=== PATIENT | female | born 1960 | race Caucasian/White ===

== ENCOUNTER 2022-06-26 16:50 | Outpatient (REF) | payer OTHER, SELFPAY ==
[2022-06-27 14:19] LABS: H Pylori Breath Test Negative (Negative)
== END 2022-06-26 16:51 | disposition home or self-care (01) ==
LOC: HO.LNP 16:50
PROVIDERS: Visit Provider Surgery
DX: E03.9 Hypothyroidism, unspecified (principal); E66.01 Morbid (severe) obesity due to excess calories; G47.30 Sleep apnea, unspecified
CPT/HCPCS: 83013

== ENCOUNTER 2022-07-06 09:10 | Outpatient (REF) | payer OTHER, SELFPAY ==
[2022-07-06 09:36] LABS: MANUAL DIFF FLAG NO
[2022-07-06 10:37] LABS: Basophils Absolute Auto 0.1 X10*3/uL (0.0-0.2); Basophils Percent Auto 0.6 % (0-2); Eosinophils Absolute Auto 0.3 X10*3/uL (0.0-0.4); Eosinophils Percent Auto 3.7 % (0-4); Hematocrit 47.8 % (37.0-47.0); Hemoglobin 15.7 g/dl (12.0-16.0); Imm Gran Abs Auto 0.03 X10*3/uL (0.00-0.03); Imm Gran Pct Auto 0.4 % (0.0-0.4); Lymphocytes Absolute Auto 3.7 X10*3/uL (1.2-4.9); Lymphocytes Percent Auto 45.3 % (20-40); Mean Corpuscular HGB Conc 32.8 g/dl (31.0-35.0); Mean Corpuscular Hemoglobin 30.6 pg (27.0-33.0); Mean Corpuscular Volume 93.2 fL (80.0-98.0); Mean Platelet Volume 10.8 fL (9.4-12.3); Monocytes Absolute Auto 0.4 X10*3/uL (0.1-1.2); Monocytes Percent Auto 5.1 % (2-11); Neutrophils Absolute Auto 3.7 x10*3/uL (2.0-8.3); Neutrophils Percent Auto 44.9 % (45-73); Platelet Count 295 X10*3/uL (160-400); Red Blood Count 5.13 X10*6/uL (4.20-5.50); White Blood Count 8.2 X10*3/uL (4.8-10.8)
[2022-07-06 10:47] LABS: Estimated Average Glucose 100 mg/dL; Hemoglobin A1c % 5.1 %
[2022-07-06 11:11] LABS: Alanine Aminotransferase 18 U/L (0-31); Albumin Level 4.2 g/dL (3.5-5.0); Alkaline Phosphatase 81 U/L (39-117); Anion Gap 18 (12-20); Aspartate Amino Transferase 22 U/L (5-31); Bilirubin Total 0.7 mg/dL (0.0-1.0); Blood Urea Nitrogen 13 mg/dL (9-16); C Reactive Protein 1.49 mg/dL (< or = 0.50); Calcium 9.8 mg/dL (8.4-10.2); Carbon Dioxide 24 mmol/L (22-29); Chloride 104 mmol/L (96-108); Cholesterol 189 mg/dL; Estimated Glomerular Filt Rate > 60; Glucose Random 83 mg/dL (60-115); HDL Cholesterol 54 mg/dL; Iron 80 mcg/dL (30-160); LDL Cholesterol Calculated 118 mg/dl; Percent Iron Saturation 25 % (15-50); Potassium 4.7 mmol/L (3.3-5.1); Sodium 141 mmol/L (135-145); Total Iron Binding Capacity 321 mcg/dL (228-428); Total Protein 7.4 g/dL (6.5-8.0); Triglycerides 86 mg/dL; Unsaturated Iron Binding 241 ug/dL
[2022-07-06 11:37] LABS: Folate 10.8 ng/mL (> or = 4.0); Vitamin B12 187 pg/mL (200-900)
[2022-07-06 11:38] LABS: Ferritin 248 ng/mL (10-250); TSH reflex Free T4 1.19 uIU/mL (0.32-4.0); Vitamin D 25-OH Total 18.4 ng/mL (>30)
[2022-07-06 11:43] LABS: Insulin 10 uU/mL (2-29)
[2022-07-09 11:41] LABS: Calcium (PTHI) 9.7 mg/dL (8.6-10.4); PTHI 77 pg/mL (16-77)
[2022-07-10 15:37] LABS: Zinc 78 mcg/dL (60-130)
[2022-07-11 16:42] LABS: Vitamin B1 6 nmol/L (8-30)
[2022-07-11 17:02] LABS: Vitamin A 41 mcg/dL (38-98)
== END 2022-07-06 09:11 | disposition home or self-care (01) ==
LOC: HO.LAB 09:10
PROVIDERS: Visit Provider Surgery
DX: E03.9 Hypothyroidism, unspecified (principal); E66.01 Morbid (severe) obesity due to excess calories; G47.30 Sleep apnea, unspecified
CPT/HCPCS: 36415; 80053; 80061; 82306; 82607; 82728; 82746; 83036; 83525; 83540; 83970; 84425; 84443; 84590; 84630; 85025; 86140

== ENCOUNTER → 2022-07-10 10:19 | Outpatient (REF) | payer OTHER, SELFPAY ==
--- NOTE | ~2022-07-10 | XR_ITS ---
EXAMINATION: XR CHEST CLINICAL INFORMATION: Obesity COMPARISON: None TECHNIQUE: 2 views of the chest were obtained. FINDINGS: The cardiac and mediastinal contours are normal. There is slight elevation of the right hemidiaphragm. There is a 4 x 8 mm nodular density seen retrosternally on the lateral view behind the upper sternum. No corresponding abnormality is appreciated on the PA view. It is uncertain whether this is related to vascular calcification in the ascending thoracic aorta or could represent a nodule. The lungs are otherwise clear. There is no pleural effusion or pneumothorax. Degenerative changes of the spine. XR/XR chest 2V IMPRESSION: 4 x 8 mm retrosternal nodular density seen on the lateral view only, question pulmonary nodule versus aortic calcification.
--- NOTE | 2022-07-10 10:23 | ECG_ITS ---
Test Reason : obesity Blood Pressure : / mmHG Vent. Rate : 082 BPM Atrial Rate : 082 BPM P-R Int : 148 ms QRS Dur : 082 ms QT Int : 372 ms P-R-T Axes : 045 014 023 degrees QTc Int : 434 ms Normal sinus rhythm Normal ECG No previous ECGs available Referred By: Tino Cuevas Electronically Signed By:KATHRIN STEPHENSON MD
== END ==
LOC: HO.CARD 10:19
PROVIDERS: Visit Provider Surgery
DX: E66.01 Morbid (severe) obesity due to excess calories (principal); E03.9 Hypothyroidism, unspecified; G47.30 Sleep apnea, unspecified
CPT/HCPCS: 71046; 93005

== ENCOUNTER → 2022-07-11 13:00 | Outpatient (BNVA) | payer OTHER, SELFPAY | PROVIDERS: Visit Provider Counselor Mental Health | DX: F43.20 Adjustment disorder, unspecified (principal); E66.01 Morbid (severe) obesity due to excess calories; M19.90 Unspecified osteoarthritis, unspecified site; E03.9 Hypothyroidism, unspecified | CPT/HCPCS: 90791 ==

== ENCOUNTER → 2022-07-12 08:44 | Outpatient (BNVA) | payer OTHER, SELFPAY | PROVIDERS: Visit Provider Dietitian, Registered | DX: E66.01 Morbid (severe) obesity due to excess calories (principal) | CPT/HCPCS: 97802 ==

== ENCOUNTER 2022-07-29 09:39 | Outpatient (REF) | payer OTHER, SELFPAY ==
--- NOTE | ~2022-07-29 | US_ITS ---
EXAMINATION: US COMPLETE ABDOMEN WITH LIVER ELASTOGRAPHY CLINICAL INFORMATION: Morbid obesity. COMPARISON: None. TECHNIQUE: Real-time imaging of the abdominal viscera. Noninvasive ultrasound liver fibrosis assessment is performed using Bull ElastPQ point quantification shear wave elastography (2D-SWE) with a C5-2 MHz transducer. Multiple elastography samples are obtained. FINDINGS: PANCREAS: Normal. The visualized pancreatic head and body are normal in appearance. The remainder of the pancreas is obscured from visualization by the overlying bowel gas. ABDOMINAL AORTA: The proximal, middle, and distal aortic segments are normal in caliber. INFERIOR VENA CAVA: Visualized portions are normal. LIVER: The liver demonstrates normal size, contour and increased echogenicity. No focal lesion or intrahepatic biliary duct dilatation. The right lobe measures 13.7 cm in length. The left lobe measures 9.3 cm in length. Portal flow is hepatopedal. Shear wave liver elastography median stiffness is 1.79 m/s (reference: normal median stiffness is 1.3 m/s or less). IQR/median stiffness to assess sampling precision is 0.09 (reference: good quality data set is IQR/median stiffness of 0.15 or less). GALLBLADDER: Normal. The gallbladder is physiologically distended without evidence of stones, sludge, polyps, wall thickening or pericholecystic fluid. COMMON BILE DUCT: Normal in caliber measuring 0.4 cm in diameter. RIGHT KIDNEY: There is an exophytic cyst lower pole measuring 5.6 x 2.8 x 5.5 cm No hydronephrosis. No renal calculi or focal parenchymal lesions. The kidney measures 9.5 cm in maximum dimension. LEFT KIDNEY: Normal. No hydronephrosis. No renal calculi or focal parenchymal lesions. The kidney measures 12.4 cm in maximum dimension. SPLEEN: Normal. The spleen measures 11.1 cm in maximum dimension. FREE FLUID: None. US/US abdomen comp w elastography IMPRESSION: 1. Mild hepatic steatosis without focal lesion. Small exophytic cyst lower pole right kidney. 2. Liver elastography: Median liver stiffness measures 1.79 m/s corresponding to cACLD (suggestive) REFERENCE: Society of Radiologists in Ultrasound Liver Stiffness Thresholds (2019): LIVER STIFFNESS THRESHOLDS: *Liver Stiffness equal or less than 1.3 m/s: High probability of being normal. *Liver Stiffness less than 1.7 m/s: In the absence of other known clinical signs, rules out compensated advanced chronic liver disease. *Liver Stiffness 1.7-2.1 m/s: Suggestive of compensated advanced chronic liver disease but need further test for confirmation. *Liver Stiffness over 2.1 m/s: Rules in compensated advanced chronic liver disease. *Liver Stiffness over 2.4 m/s: Suggestive of clinically significant portal hypertension. QUALITY OF DATA SET: *IQR/Median value equal or less than 0.15 implies a quality data set. *IQR/Median value over 0.15 implies a poor quality data set. SIGNIFICANT CHANGE FROM PRIOR EXAM: Significant change if liver stiffness measurement is 10% or greater from prior exam. OTHER CONSIDERATIONS: The stage of liver fibrosis may be overestimated in the setting of acute hepatitis, liver inflammation, elevated liver function tests, hepatic vascular congestion, obstructive cholestasis, non-fasting state, and infiltrative diseases such as amyloidosis and lymphoma. In some patients with NAFLD, the liver stiffness thresholds for compensated advanced chronic liver disease may be lower. In causes other than viral hepatitis and NAFLD, liver stiffness thresholds are not well established.
== END 2022-07-29 09:40 | disposition home or self-care (01) ==
LOC: HO.US 09:39
PROVIDERS: Visit Provider Surgery
DX: E66.01 Morbid (severe) obesity due to excess calories (principal); E03.9 Hypothyroidism, unspecified; G47.30 Sleep apnea, unspecified
CPT/HCPCS: 76705; 76981

== ENCOUNTER 2022-07-31 08:22 | Outpatient (REF) | payer OTHER, SELFPAY ==
--- NOTE | ~2022-07-31 | CT_ITS ---
EXAMINATION: CT CHEST WITHOUT CONTRAST CLINICAL INFORMATION: Pulmonary nodule COMPARISON: Previous chest x-ray 07/10/2022 TECHNIQUE: Multidetector volumetric CT imaging of the chest was done. Axial MIP volume rendering provided. Sagittal and coronal reformatted images were obtained. This CT examination was performed using dose optimization techniques as appropriate, variously including the following: *Automated exposure control *Adjustment of mA and/or kV according to patient size (this includes techniques or standardized protocols for targeted exams where dose is matched to indication/reason for exam; i.e. extremities or head) *Use of iterative reconstruction technique DLP: 337 mGy-cm FINDINGS: LUNGS: There is a peripheral or subpleural anterior segment right upper lobe nodule versus area of scarring or atelectasis axial image 154 series 5 measuring maximum 4 mm. There is adjacent pleural thickening are prominent extrapleural fat. There is linear scarring or subsegmental atelectasis in the anterior segment of the right upper lobe right middle lobe, lingula and right lower lobe. The lungs are otherwise clear. The lungs are otherwise clear. MEDIASTINUM: Scattered aortic calcifications. This probably accounts for abnormality seen on chest x-ray. Thoracic aorta is upper normal in size. Normal heart size. Mild coronary artery calcification. No pericardial effusion. No enlarged hilar or mediastinal lymph nodes. Normal thyroid gland. CORONARY ARTERY CALCIFICATION: Mild PLEURA: There is no pleural effusion. AXILLA: No lymphadenopathy. UPPER ABDOMEN: Liver slightly low in attenuation suggestive of fatty infiltration. Liver also appears enlarged. The gallbladder is been removed. Diverticulosis of the colon. OSSEOUS STRUCTURES: Degenerative changes of the spine. Recent right anterior seventh and eighth rib fractures. CT/CT chest wo IV con IMPRESSION: Small 4 mm peripheral or subpleural right upper lobe nodule. Areas of linear scarring or subsegmental atelectasis, right greater than left. Atherosclerotic disease. According to the UPDATED 2017 Fleischner Society recommendations, the advised follow-up imaging for less than 6 mm solid nodule: Low risk, no chest CT follow-up and high risk, optional chest CT follow-up in one year. Fleischner guidelines were followed.
== END 2022-07-31 08:23 | disposition home or self-care (01) ==
LOC: HO.CT 08:22
PROVIDERS: Visit Provider Surgery
DX: R91.1 Solitary pulmonary nodule (principal)
CPT/HCPCS: 71250

== ENCOUNTER 2022-08-23 10:53 | Outpatient (REF) | payer OTHER, SELFPAY ==
--- NOTE | ~2022-08-23 | FL_ITS ---
EXAMINATION: XR FLUOROSCOPY UPPER GI WITH AIR CLINICAL INFORMATION: Morbid/severe obesity due to excess calories COMPARISON: None TECHNIQUE: Routine upper GI air-contrast study was performed in upright and lying position. FINDINGS: Following oral administration of thick barium and effervescent granules there is normal propagation bolus from the oral cavity through the pharynx, esophagus into stomach without any evidence of obstruction, narrowing or stricture. There is no extrinsic compression. On placing patient supine and prone lying the course, caliber and peristalsis of the stomach and the duodenal bulb is normal. The mucosal pattern of this esophagus, stomach and the duodenum is normal. No gastroesophageal reflux or hiatal hernia seen. FLUOROSCOPY TIME: 1.4 minutes DOSE AREA PRODUCT: 36.176 uGy-m2 (microgray-meter squared) FL/FL upper GI w air IMPRESSION: Unremarkable upper GI air-contrast study
== END 2022-08-23 10:54 | disposition home or self-care (01) ==
LOC: HO.XRAY 10:53
PROVIDERS: Visit Provider Surgery
DX: E66.01 Morbid (severe) obesity due to excess calories (principal); E03.9 Hypothyroidism, unspecified; G47.30 Sleep apnea, unspecified
CPT/HCPCS: 74246

== ENCOUNTER → 2022-09-06 08:05 | Outpatient (BNVA) | payer OTHER, SELFPAY | PROVIDERS: Visit Provider Surgery | DX: Z01.818 Encounter for other preprocedural examination (principal) ==

== ENCOUNTER → 2022-09-13 09:01 | Outpatient (BNVA) | payer OTHER, SELFPAY | PROVIDERS: PCP Nurse Practitioner Family; Visit Provider Surgery | DX: R91.1 Solitary pulmonary nodule (principal) | CPT/HCPCS: 99202 ==

== ENCOUNTER 2022-09-17 08:20 | Inpatient (IN) | payer OTHER, SELFPAY ==
[2022-09-12 14:59] VITALS: BMI 38.4
[2022-09-13 09:51] LABS: MANUAL DIFF FLAG NO
[2022-09-13 10:22] LABS: Basophils Absolute Auto 0.1 X10*3/uL (0.0-0.2); Basophils Percent Auto 0.6 % (0-2); Eosinophils Absolute Auto 0.4 X10*3/uL (0.0-0.4); Eosinophils Percent Auto 4.3 % (0-4); Hematocrit 47.5 % (37.0-47.0); Hemoglobin 15.8 g/dl (12.0-16.0); INTERNATIONAL NORM RATIO 1.1 (0.9-1.1); Imm Gran Abs Auto 0.02 X10*3/uL (0.00-0.03); Imm Gran Pct Auto 0.2 % (0.0-0.4); Lymphocytes Absolute Auto 3.7 X10*3/uL (1.2-4.9); Lymphocytes Percent Auto 42.8 % (20-40); Mean Corpuscular HGB Conc 33.3 g/dl (31.0-35.0); Mean Corpuscular Hemoglobin 30.5 pg (27.0-33.0); Mean Corpuscular Volume 91.7 fL (80.0-98.0); Mean Platelet Volume 10.5 fL (9.4-12.3); Monocytes Absolute Auto 0.6 X10*3/uL (0.1-1.2); Monocytes Percent Auto 7.3 % (2-11); Neutrophils Absolute Auto 3.8 x10*3/uL (2.0-8.3); Neutrophils Percent Auto 44.8 % (45-73); Platelet Count 283 X10*3/uL (160-400); Prothrombin Time 12.4 SEC (10.0-13.1); Red Blood Count 5.18 X10*6/uL (4.20-5.50); Red Cell Distribution Width 12.7 % (11.0-16.0); White Blood Count 8.6 X10*3/uL (4.8-10.8)
[2022-09-13 10:25] LABS: Partial Thromboplastin Time 32.7 SEC (26.0-36.4)
[2022-09-13 10:59] LABS: Estimated Average Glucose 94 mg/dL; Hemoglobin A1c % 4.9 %
[2022-09-13 11:25] LABS: Alanine Aminotransferase 21 U/L (0-31); Albumin Level 4.3 g/dL (3.5-5.0); Alkaline Phosphatase 83 U/L (39-117); Anion Gap 17 (12-20); Aspartate Amino Transferase 23 U/L (5-31); Bilirubin Total 1.1 mg/dL (0.0-1.0); Blood Urea Nitrogen 17 mg/dL (9-16); C Reactive Protein 1.95 mg/dL (< or = 0.50); Calcium 10.1 mg/dL (8.4-10.2); Carbon Dioxide 22 mmol/L (22-29); Chloride 107 mmol/L (96-108); Cholesterol 195 mg/dL; Creatinine Clr Calc Pharmacy 82.5; Estimated Glomerular Filt Rate > 60; Glucose Random 92 mg/dL (60-115); HDL Cholesterol 50 mg/dL; LDL Cholesterol Calculated 126 mg/dl; Potassium 4.6 mmol/L (3.3-5.1); Sodium 141 mmol/L (135-145); Total Protein 7.5 g/dL (6.5-8.0); Triglycerides 99 mg/dL
[2022-09-13 11:32] LABS: Insulin 9 uU/mL (2-29); TSH reflex Free T4 0.16 uIU/mL (0.32-4.0)
[2022-09-13 12:25] LABS: Free T4 (Free Thyroxine) 1.35 ng/dL (0.71-1.85)
--- NOTE | 2022-09-13 23:51 | MHC.SHP ---
Pre-Procedural Eval Section A Date of Service: 09/13/22 The patient is an INPATIENT: Yes The History & Physical has been completed within 30 days and I have reviewed it.: Yes Section B Chief Complaint: Morbid (severe) obesity due to excess calories Relevant Family History (Specify if Yes): No Relevant Social History: None Present Medications: None Medical History: No relevant PMH History of Previous Operations: No relevant previous surgery Allergies: Allergies Allergy/AdvReac Type Severity Reaction Status Date / Time OUTDOOR ALLERGIES Allergy Mild RUNNY NOSE Uncoded 09/13/22 09:05 Review of Systems Sugical H&P ROS: Negative: Constitution, Cardiovascular, Respiratory, Neurological, Psychiatric, Hem-Onc, Allergic/Immunologic, Gastrointestinal, Genitourinary, Musculoskeletal, Integumentary, Endocrine and Eyes/Ears/Nose/Throat Exam Surgical H&P Exam: Normal: HEENT, Normal: Heart, Normal: Lungs, Normal: Extremities, Normal: Abdomen, Normal: Skin and Normal: Neurological Plan Diagnosis/Plan: Unchanged I have reviewed the history and physical and performed a pertinent physical examination on my patient. No changes have occurred unless specified. Time Spent With Patient Time: Total time managing care of this patient today ____ minutes.
--- NOTE | 2022-09-16 10:34 | HO.ANESPROP2 ---
Documented by User: Carolyn Barahona NP 09/16/22 10:39 HPI - Anesthesia Eval Consult details Narrative: 62yo F for Gastrectomy Sleeve,possible diaphragmatic hernia,possible ventral hernia,possible open PMFSH Active Problems Active Problems: All Active Problems (Updated 09/12/22 @ 15:03 by Tavia Govea RN) Sleep apnea (Acute) Vitamin D deficiency (Acute) Vitamin B12 deficiency (Acute) Adjustment disorder, unspecified (Acute) Vitamin B1 deficiency (Acute) Pulmonary nodule (Acute) Personal history of nicotine dependence (Acute) Obesity (Acute) BMI 39.0-39.9,adult (Acute) Hypothyroidism (Acute) Morbid obesity (Acute) DJD (degenerative joint disease) (Acute) Past Medical History Medical History Arthritis DJD (degenerative joint disease) Hypothyroidism Morbid obesity ROEL (obstructive sleep apnea) Family History Family History Mother Diabetes Cervical cancer Father Hypertension Brother Hypertension Sister Arthritis Son No problems noted. Son No problems noted. Daughter No problems noted. Surgical History Surgical History Hx of section Hx of cholecystectomy Hx of hysterectomy Social History Social History Are you a primary animal care taker to a significant other at home: No Do you presently have visiting nurse or other home services: No Alcohol intake: current Alcohol intake frequency: does not drink Alcohol type: beer and wine Patient Tobacco Use Status: Former Tobacco user Quit Date: 2007 Tobacco use type: Cigarette Use of substances other than those prescribed or required for medical reasons: No Have you been hit, kicked, punched, or otherwise hurt by someone within the past year? If so, by whom?: No Are you DNR?: No Advance Directives: No (will bring dos) Advance Directives Information Provided: No Advance Directives on File: No Recently lost weight without trying: No Nutrition Risks: No Nutritional Risk Meds Allergies Allergy/AdvReac Type Severity Reaction Status Date / Time OUTDOOR ALLERGIES Allergy Mild RUNNY NOSE Uncoded 09/13/22 09:05 Home Medications Medication Instructions Recorded Confirmed Last Taken Type levothyroxine 150 mcg tablet 150 mcg PO DAILY 06/12/22 09/13/22 Unknown History cetirizine 10 mg capsule (Zyrtec) 10 mg PO DAILY PRN Pain 06/19/22 09/13/22 Unknown History naproxen sodium 220 mg capsule 220 mg PO BID PRN 06/19/22 09/13/22 Unknown History (Aleve) acetaminophen 325 mg capsule 650 mg PO Q6H PRN Pain 09/12/22 09/13/22 Unknown History Exam Exam Date and Time: September 16, 2022 1034 Height,Weight and Vital Signs: Height 5 ft 5 in Weight 104.78 kg Pertinent Lab Results Pertinent Lab Results: Laboratory Tests 09/13/22 09/13/22 09/13/22 09:45 09:49 09:49 WBC 8.6 RBC 5.18 Hgb 15.8 Hct 47.5 H MCV 91.7 MCH 30.5 MCHC 33.3 RDW 12.7 Plt Count 283 MPV 10.5 Immature Gran % (Auto) 0.2 Neut % (Auto) 44.8 L Lymph % (Auto) 42.8 H [place] % (Auto) 7.3 Eos % (Auto) 4.3 H Baso % (Auto) 0.6 Lymph # (Auto) 3.7 [place] # (Auto) 0.6 Eos # (Auto) 0.4 Baso # (Auto) 0.1 Abs Immat Gran (auto) 0.02 Absolute Neuts (auto) 3.8 Absolute Nucleated RBC 0.000 Nucleated RBC % (auto) 0.0 PT 12.4 INR 1.1 APTT 32.7 Sodium Potassium Chloride Carbon Dioxide Anion Gap BUN Creatinine Estim Creat Clear Calc Estimated GFR Random Glucose Estimat Average Glucose Hemoglobin A1c % Insulin Level Calcium Total Bilirubin AST ALT Alkaline Phosphatase C-Reactive Protein Total Protein Albumin Triglycerides Cholesterol LDL Cholesterol, Calc HDL Cholesterol TSH Free T4 Blood Type O Positive Antibody Screen NEGATIVE 09/13/22 09/13/22 09:49 09:49 WBC RBC Hgb Hct MCV MCH MCHC RDW Plt Count MPV Immature Gran % (Auto) Neut % (Auto) Lymph % (Auto) [place] % (Auto) Eos % (Auto) Baso % (Auto) Lymph # (Auto) [place] # (Auto) Eos # (Auto) Baso # (Auto) Abs Immat Gran (auto) Absolute Neuts (auto) Absolute Nucleated RBC Nucleated RBC % (auto) PT INR APTT Sodium 141 Potassium 4.6 Chloride 107 Carbon Dioxide 22 Anion Gap 17 BUN 17 H Creatinine 0.85 Estim Creat Clear Calc 82.5 Estimated GFR > 60 Random Glucose 92 Estimat Average Glucose 94 Hemoglobin A1c % 4.9 Insulin Level 9 Calcium 10.1 Total Bilirubin 1.1 H AST 23 ALT 21 Alkaline Phosphatase 83 C-Reactive Protein 1.95 H Total Protein 7.5 Albumin 4.3 Triglycerides 99 Cholesterol 195 LDL Cholesterol, Calc 126 HDL Cholesterol 50 TSH 0.16 L Free T4 1.35 Blood Type Antibody Screen Narrative Narrative: EKG 07/2022 Vent. Rate : 082 BPM ? ? Atrial Rate : 082 BPM ?? P-R Int : 148 ms? QRS Dur : 082 ms ? ? QT Int : 372 ms ? ? ? P-R-T Axes : 045 014 023 degrees ?? QTc Int : 434 ms ? Normal sinus rhythm Normal ECG No previous ECGs available ? Assessment and Plan Assessment Anesthesia Assessment: Chart Reviewed Documented by User: Johana Auguste MD 09/17/22 12:52 [facility] Active Problems Active Problems: All Active Problems (Updated 09/12/22 @ 15:03 by Tavia Govea RN) Sleep apnea (Acute) Vitamin D deficiency (Acute) Vitamin B12 deficiency (Acute) Adjustment disorder, unspecified (Acute) Vitamin B1 deficiency (Acute) Pulmonary nodule (Acute) Personal history of nicotine dependence (Acute) Obesity (Acute) BMI 38.4 BMI 39.0-39.9,adult (Acute) Hypothyroidism (Acute) Morbid obesity (Acute) DJD (degenerative joint disease) (Acute) Past Medical History Medical History Arthritis DJD (degenerative joint disease) Hypothyroidism Morbid obesity ROEL (obstructive sleep apnea) Family History Family History Mother Diabetes Cervical cancer Father Hypertension Brother Hypertension Sister Arthritis Son No problems noted. Son No problems noted. Daughter No problems noted. Family history of problems with anesthesia: No Surgical History Surgical History Hx of section Hx of cholecystectomy Hx of hysterectomy History of Problems with Anesthesia: No Social History Social History Are you a primary animal care taker to a significant other at home: No Do you presently have visiting nurse or other home services: No Alcohol intake: current Alcohol intake frequency: does not drink Alcohol type: beer and wine Patient Tobacco Use Status: Former Tobacco user Quit Date: 2007 Tobacco use type: Cigarette Use of substances other than those prescribed or required for medical reasons: No Have you been hit, kicked, punched, or otherwise hurt by someone within the past year? If so, by whom?: No Are you DNR?: No Advance Directives: No (will bring dos) Advance Directives Information Provided: No Advance Directives on File: No Recently lost weight without trying: No Nutrition Risks: No Nutritional Risk Meds Allergies Allergy/AdvReac Type Severity Reaction Status Date / Time OUTDOOR ALLERGIES Allergy Mild RUNNY NOSE Uncoded 09/13/22 09:05 Home Medications Medication Instructions Recorded Confirmed Last Taken Type levothyroxine 150 mcg tablet 150 mcg PO DAILY 06/12/22 09/13/22 Unknown History cetirizine 10 mg capsule (Zyrtec) 10 mg PO DAILY PRN Pain 06/19/22 09/13/22 Unknown History naproxen sodium 220 mg capsule 220 mg PO BID PRN 06/19/22 09/13/22 Unknown History (Aleve) acetaminophen 325 mg capsule 650 mg PO Q6H PRN Pain 09/12/22 09/13/22 Unknown History Exam Height,Weight and Vital Signs: Height 5 ft 5 in Weight 104.78 kg Vital Signs Temp Pulse Resp BP 09/17/22 09:00 97.8 F 72 15 126/72 Pertinent Lab Results Pertinent Lab Results: Laboratory Tests 09/13/22 09/13/22 09/13/22 09:45 09:49 09:49 WBC 8.6 RBC 5.18 Hgb 15.8 Hct 47.5 H MCV 91.7 MCH 30.5 MCHC 33.3 RDW 12.7 Plt Count 283 MPV 10.5 Immature Gran % (Auto) 0.2 Neut % (Auto) 44.8 L Lymph % (Auto) 42.8 H [place] % (Auto) 7.3 Eos % (Auto) 4.3 H Baso % (Auto) 0.6 Lymph # (Auto) 3.7 [place] # (Auto) 0.6 Eos # (Auto) 0.4 Baso # (Auto) 0.1 Abs Immat Gran (auto) 0.02 Absolute Neuts (auto) 3.8 Absolute Nucleated RBC 0.000 Nucleated RBC % (auto) 0.0 PT 12.4 INR 1.1 APTT 32.7 Sodium Potassium Chloride Carbon Dioxide Anion Gap BUN Creatinine Estim Creat Clear Calc Estimated GFR Random Glucose Estimat Average Glucose Hemoglobin A1c % Insulin Level Calcium Total Bilirubin AST ALT Alkaline Phosphatase C-Reactive Protein Total Protein Albumin Triglycerides Cholesterol LDL Cholesterol, Calc HDL Cholesterol TSH Free T4 Blood Type O Positive Antibody Screen NEGATIVE 09/13/22 09/13/22 09:49 09:49 WBC RBC Hgb Hct MCV MCH MCHC RDW Plt Count MPV Immature Gran % (Auto) Neut % (Auto) Lymph % (Auto) [place] % (Auto) Eos % (Auto) Baso % (Auto) Lymph # (Auto) [place] # (Auto) Eos # (Auto) Baso # (Auto) Abs Immat Gran (auto) Absolute Neuts (auto) Absolute Nucleated RBC Nucleated RBC % (auto) PT INR APTT Sodium 141 Potassium 4.6 Chloride 107 Carbon Dioxide 22 Anion Gap 17 BUN 17 H Creatinine 0.85 Estim Creat Clear Calc 82.5 Estimated GFR > 60 Random Glucose 92 Estimat Average Glucose 94 Hemoglobin A1c % 4.9 Insulin Level 9 Calcium 10.1 Total Bilirubin 1.1 H AST 23 ALT 21 Alkaline Phosphatase 83 C-Reactive Protein 1.95 H Total Protein 7.5 Albumin 4.3 Triglycerides 99 Cholesterol 195 LDL Cholesterol, Calc 126 HDL Cholesterol 50 TSH 0.16 L Free T4 1.35 Blood Type Antibody Screen Laboratory Results - last 24 hr 09/16/22 12:55 COVID-19 ([facility]) Negative COVID-19 Clin Com See Note Airway Mallampati Class: II TM Dist: >3cm Neck ROM: Full Loose/Missing/Broken Teeth: No (Denies broken, loose, missing teeth) Heart: RRR Lungs: CTAB Assessment and Plan Assessment Anesthesia Assessment: Anesthesia Plan Discussed Final Anesthetic Review Family History of Problems with Anesthesia: No History of Problems with Anesthesia: No NPO: Yes ASA Class: III Final Preanesthetic Review: No Changes in Pt Med Stat, Meds/Allgs Chart Reviewed, Consent Obtained/Reviewed and Anes Risks/Benef Reviewed Patient Risk: Intermediate Procedure Risk: Intermediate Assessment/Block/Sedation in SS: Assess/Block/Sedation-SS Anesthetic Plan Anesthetic Plan: GA Disposition: Standard PACU and Inp. Admit - Standard Bed
[2022-09-16 13:20] LABS: COVID-19 Test Negative (Negative); IDNOW Serial# 9DB6401D
[2022-09-17] VITALS (11 sets, daily range): BP systolic 101–149; BP diastolic 66–80; PULSE 72–84; RESP 15–18; TEMP 36.1–36.8; O2SAT 92–98
[2022-09-17] MEDS: Lactated Ringers 1,000 ML 100 ML IVCONT ×2 (09:04→23:05)
[2022-09-17] MEDS: Lactated Ringers 1,000 ML 999 ML IV (09:05)
--- NOTE | 2022-09-17 10:52 | PM.OP ---
Brief Operative Note Date of Service: 09/17/22 Pre-op diagnosis: Morbid obesity with comorbidities (see below) Post-op diagnosis: same (& abdominal adhesions & diaphragmatic hernia) Procedure: INITIAL PATIENT BMI ON PRESENTATION AT OUR OFFICE: 43.1 kg/m2 LAST BMI BEFORE SURGERY: 38.3 kg/m2 COMORBIDITIES: sleep apnea, hypothyroidism, DJD, liver steatosis, liver fibrosis ?The patient presented to the Weight Management Program with significant obesity that was negatively impacting the patient's comorbidities as listed above.? The program is a phased program with a special focus on preoperative medical weight management to promote substantial weight loss and prepare the patients for the second phase of the program: bariatric surgery. The patient participated in an intensive weekly lifestyle ?intervention and exercise program during which the patient ?has lost between the initial office visit and the last preoperative visit 29.1lbs, or 11.23% of initial actual body weight. It was deemed appropriate for the patient to now have bariatric surgery. In light of the current Covid-19 pandemic and the well documented strong association of obesity and increased risk of worse outcomes if infected with Covid-19 (REFERENCES:https://pubmed.ncbi.nlm.nih.gov/90266000/,?https://pubmed.ncbi.nlm.nih.gov/59999729/), any delay in undergoing bariatric surgery may lead to the patient's worsening health condition and increased?risk of more severe Covid-19 disease if infected. In addition a recent?study from [facility] published in [facility] on 09/03/2021 ([email or web address]) found that, among patients with obesity, substantial weight loss achieved with surgery was associated with improved outcomes of COVID-19 infection. The findings suggest that obesity can be a modifiable risk factor for the severity of COVID-19 infection. In addition, the patient met the BMI-criteria for bariatric surgery based on the BMI on initial presentation. The patient should not be penalized for achieving such weight loss because ?it is not sustainable long-term without surgical intervention and it was achieved in preparation for bariatric surgery ?under my direction and based on my published research ([email or web address]).[email or web address] and?[email or web address].soard.org/article/[email or web address])16730-X/pdf) ?that a 10% preoperative weight loss improves long-term weight loss after surgery and reduces perioperative complications.? Insurance carriers such as [facility] have endorsed my recommendations ?and have included in their policies criteria to include a 10% preoperative weight loss requirement. PROCEDURE: Esophago-gastroscopy, laparoscopic repair of incarcerated diaphragmatic hernia, laparoscopic resection of esophageal lipoma, laparoscopic lysis of adhesions, laparoscopic sleeve gastrectomy and laparoscopic gastropexy INDICATIONS: This is a 62 year-old female who was electively scheduled for laparoscopic, possibly open sleeve gastrectomy. The risks and complications of the procedure were discussed with the patient in advance, particularly the possibility of ; pulmonary embolism; staple line leak; bleeding; GERD; cardiac, pulmonary, or renal complications; as well as long-term problems such as insufficient weight loss, vitamin deficiency, strictures, or ulcers. The patient understood all the risks, and was in agreement to proceed with surgery. DESCRIPTION OF PROCEDURE: After informed consent was obtained from the patient, the patient was given preoperative antibiotics, and was transferred to the operating room. After successful induction of general anesthesia, pneumatic compression devices were placed on both lower extremities. An upper endoscopy was performed next. The oropharynx and esophagus appeared to be within normal limits. There was an incarcerated diaphragmatic hernia present of moderate size that was nor reported at the preoperative upper GI. The stomach was entered. Then after all fluid and air were suctioned and the stomach was fully decompressed, the scope was withdrawn and secured in the mid esophagus. The patient was then prepped and draped in the usual sterile manner, and abdominal access was established at the left upper quadrant with the Veress needle technique. A 5 mm Versi-step port was inserted. A 5 mm Versi step port was placed in the left mid-abdomen. The area, where the Veress needle was inserted, was inspected and there was no injury. The Veress needle was removed and was replaced with a 5 mm Versi step port. An additional extra 5 mm Versi-step was placed to the left of the umbilicus. There were extensive adhesions in the upper abdomen from previous open cholecystectomy involving the omentum and the anterior abdominal wall. Those were lysed completely with the ultrasonic device. Additional adhesions in the mid-abdomen and pelvis from previous hysterectomy and C-sections were not affecting our exposure and they were left intact. A 12 mm blunt port was inserted, and the abdomen was insufflated with CO2 to a pressure of 15 mmHg. Under direct visualization, additional ports were placed, specifically two 5 mm Versi-step ports to the left upper quadrant, and a 5 mm Versi-Step port to the right upper quadrant. 1% lidocaine plain was used to infiltrate all port sites as well as all fascia defects. Following that, the patient was placed in a steep reverse Trendelenburg position. An additional 5 mm port was placed to the right flank for the Mediflex retractor that was used to retract the left lobe of the liver. The gastro-esophageal fat pad was opened with the ultrasonic device (Thunderbeat, Olympus) and the anterior esophagus and hiatus were exposed. The angle of His was opened with the ultrasonic device the fundus of the stomach from any diaphragmatic and splenic attachments. I then opened the gastrocolic ligament between the transverse colon and the greater curvature of the stomach with the ultrasonic device to enter the lesser sac and facilitate the ligation of the short gastric vessels. I started at a mid-point along the greater curvature and using the Thunderbeat, all short gastric vessels were divided all the way to the angle of His until the left flaquita was completely dissected at its entirety. I then divided the gastro-colic ligament distally to a distance of about 3-4 cm proximal to the pylorus. There were extensive congenital adhesions between the pancreas and posterior gastric wall. Those were lysed completely with the ultrasonic device. Adhesiolysis took approximately 90 min to complete. There was a posterior significant-sized incarcerated hiatal hernia containing perigastric fat. I continued dissecting along the hiatus toward the left flaquita and the angle of His. I fully mobilized the fat pad that was incarcerated in the hernia. I then continued by dissecting even further into the posterior retro-esophageal space all the way to the angle of His. I continued to mobilize the esophagus into the mediastinum circumferentially. Both vagal nerves were seen and preserved. At that point, I was able to have at least 3 to 5 cm of esophagus into the abdomen.? 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 After I completely mobilized the esophagus from both the left and right flaquita and I had a good mobilization of the esophagus circumferentially, I closed the hernia defect with three interrupted #0 Surgidac sutures using the Endo Stitch device, all three of which was placed posterior to the esophagus. ? The stomach was then divided transversely with one Endo PRATIBHA-45 purple, one PRATIBHA-60 purple load and three PRATIBHA-60 articulating orange loads using the AEON stapler and loads. Every effort was made that the gastric sleeve had a tubular shape and an even caliber throughout. Once the sleeve resection was completed, the staple line of the gastric sleeve was reinforced with Hemoclips. The resected stomach was retrieved without difficulty from the Rito port. A gastropexy was then performed in order to prevent postoperative GERD and partial gastric volvulus. Several interrupted 2.0 Surgidac sutures were placed between the sleeve's staple line and the previously divided greater omentum and gastro-colic ligament using the Endo-Stitch device. ?An upper endoscopy was performed. There was no narrowing at the GE junction. The scope was easily advanced all the way to the pylorus which was clearly visualized. There was no narrowing anywhere and the sleeve's caliber was even throughout. The sleeve's staple line was inspected and there was no evidence of ischemia, bleeding or dehiscence. At that point the gastroscope was withdrawn from the patient?s mouth while we were decompressing the bowel and the stomach from any remaining air. I looked into the lesser sac to see how the sleeve was situating and it was situating well. There was no bleeding from the staple line, spleen, or short gastric vessels. The Mediflex retractor was removed, and the undersurface of the liver was inspected and there was no bleeding. The patient was placed in supine position. I closed the fascial defect of the 12 mm port site with a figure of eight #1 Polysorb suture. Then 30cc of Ropivacaine plain with 10 mg of Dexamethasone were used to infiltrate the fascial closure as well as all skin incisions. A total of 7ml Zynrelef was applied in the Rito wound. At this point, the abdomen was deflated, all ports were removed under direct vision, and no bleeding was noted from any of the port sites. The skin incisions were irrigated with saline and were closed with 4-0 absorbable monofilament sutures. Steri-Strips and OpSites were used to cover all incisions. The patient was extubated and was transferred in stable condition to the recovery room for further care. I was present and performed all murry parts of the procedure. Ms. Aviles was the list of first job ideas. There were no residents to assist with this case. Hood Cuevas MD, PhD, FACS Surgeon: Tino Cuevas MD Anesthesia: GETA, local and other (TAP block and 7ml Zynrelef) Was an Industrial Maintenance Mechanic used for this Procedure?: No Industrial Maintenance Mechanic: Ese Aviles Estimated blood loss (mL): 10 Urine output (mL): 0 (No Nobles to record) Pathology: other (1) Stomach, 2) retroesophageal lipoma, 3) gastro-esophageal fat pad) Condition: stable Disposition: PACU
--- NOTE | 2022-09-17 10:56 | PM.PNGS ---
Subjective Subjective Date of Service: 09/18/22 Interval history: Patient has mild incisional pain, but was able to ambulate and use the incentive spirometer. She is tolerating phase 1 bariatric diet Physical Exam Vital Signs: Vital Signs: Last Vital Signs Temp 97.8 F 09/17/22 09:00 Pulse 72 09/17/22 09:00 Resp 15 09/17/22 09:00 BP 126/72 09/17/22 09:00 BMI result Body Mass Index 38.4 GI: Inspection: Yes normal to inspection, Yes incision (clean, dry and intact) and Yes obesity Palpation (GI): Soft to palpation Extrem: Right lower extremity: normal to inspection (no calf tenderness) Left lower extremity: normal to inspection (no calf tenderness) Objective Data Active Medications Lactated Ringer's (Lr) 1,000 mls @ 100 mls/hr IVCONT .Q10H JAQUELIN Last Admin: 09/17/22 09:04 Dose: 100 mls/hr Documented By: NATALIO Labs 09/13/22 09:49 09/13/22 09:49 Labs: Laboratory Results - last 24 hr 09/16/22 12:55 COVID-19 ([facility]MENTE) Negative COVID-19 Clin Com See Note Procedures Date of Service Date of Service: 09/18/22 Progress Note: A&P Assessment and plan (1) Obesity: Status: Acute Assessment and Plan: s/p laparoscopic sleeve gastrectomy, lysis of adhesions repair of diaphragmatic hernia, resection of esophageal lipoma, and gastropexy Doing well Check am labs. If OK, will discharge home? (2) BMI 38.0-38.9,adult: Status: Acute (3) Sleep apnea: Status: Acute (4) Hypothyroidism: Status: Acute (5) DJD (degenerative joint disease): Status: Acute (6) Steatosis, liver: Status: Acute (7) Liver fibrosis: Status: Acute (8) Paraesophageal hernia: Status: Acute (9) S/P repair of paraesophageal hernia: Status: Acute (10) S/P laparoscopic sleeve gastrectomy: Status: Acute (11) Intra-abdominal adhesions: Status: Acute (12) Lipoma: Status: Acute Time Spent With Patient Time: Total time managing care of this patient today ____ minutes. Quality Stroke Does the patient have a stroke diagnosis?: No VTE Prior VTE?: No VTE Risk Level:: Surgical - moderate VTE Device Contraindication: N/A - Device Ordered VTE Drug Contraindication: Treatment Not Indicated
--- NOTE | 2022-09-17 14:31 | P.DS_ITS ---
DS: Providers Provider Date of Service: 09/18/22 Date of admission: 09/17/22 08:20 Primary care physician: Marleen Shipman NP DS: Diagnosis Discharge Diagnosis (1) Obesity: Status: Acute (2) BMI 38.0-38.9,adult: Status: Acute (3) Sleep apnea: Status: Acute (4) Hypothyroidism: Status: Acute (5) DJD (degenerative joint disease): Status: Acute (6) Steatosis, liver: Status: Acute (7) Liver fibrosis: Status: Acute DS: Summary Hospital Course Hospital Course: ADMITTING DIAGNOSIS: morbid obesity, hypothyroidism DISCHARGE DIAGNOSIS: same, s/p laparoscopic sleeve gastrectomy and repair diaphragmatic hernia PAST SURGICAL HISTORY: section, open cholecystectomy, hysterectomy PROCEDURE: upper endoscopy, laparoscopic sleeve gastrectomy and repair of diaphragmatic hernia hernia DISCHARGE SUMMARY: History of Present Illness: The patient is a 62year-old woman with a BMI of 43.1kg/m2 and associated co- morbidities as described above. The patient had extensive work-up, lost 19.5lbs preoperatively and was electively scheduled for laparoscopic, possible open sleeve gastrectomy and gastropexy. Risks and complications of the surgery were discussed with the patient in advance, particularly the possibility of , pulmonary embolism, anastomotic leak, bleeding, bowel injury, GERD, cardiac, renal or pulmonary complications. The patient understood all the risks and was in agreement with the surgical plan. Hospital Course: The patient underwent an uneventful laparoscopic sleeve gastrectomy with gastropexy and repair of diaphragmatic hernia on the day of admission. Postoperatively, the patient was transferred to the surgical floor. The patient received IV Acetaminophen and IV dilaudid for pain control. Patient was started on bariatric phase 1 diet POD #0. On postoperative day one, the patient was feeling well without nausea, vomiting, fevers, or tachycardia. The patient had some mild incisional pain and the abdomen was soft. On the morning of postoperative day one, the patient was continued on 1 ounce of water or ice every half hour. During the day, the patient did fairly well, having some incisional pain, but able to ambulate adequately and to tolerate liquids well. Since the patient is doing well, we decided that the patient was ready to be discharged. The patient was given instructions to follow-up with me next week and to call my office for any fever over 101, persistent abdominal pain, nausea, vomiting, GERD, symptoms of DVT such as calf tenderness, or leg swelling, or pulmonary embolism such as chest pain or shortness of breath. The patient was also instructed to drink 40-60 ounces of liquids per day using the 1-ounce cups. The patient had been given prescriptions for Tylenol for pain, Zofran prn for nausea, and pantoprazole and carafate previously. The patient was encouraged to ambulate and use the incentive spirometer. The patient was allowed to shower, but no baths, and encouraged to stay active at home. All of these instructions were given to the patient personally. All questions were answered and the patient understood all instructions, the instructions were also given to the patient in print. Time Spent with Patient Time attestation: Total time managing care of this patient today ____ minutes. Discharge coordination time: Less than 30 minutes Quality: Safe Use of Opioids Does Pt have an Active Cancer Diagnosis on the Problem List?: No Quality: Stroke Does the patient have a stroke diagnosis?: No Physical Exam Vital Signs: Vital Signs: Last Vital Signs Temp 97.8 F 09/17/22 09:00 Pulse 72 09/17/22 09:00 Resp 15 09/17/22 09:00 BP 126/72 09/17/22 09:00 BMI result Body Mass Index 38.4 DS: Data Data Completed and Pending Pending studies at discharge: Pending at discharge 09/17/22 13:33 Surgical [PTH] Routine 09/17/22 14:29 Surgical [PTH] Routine Discharge Plan Discharge Anticipated Discharge Date/Time: 09/18/22 10:27 Patient Disposition: Home, Self-Care Discharge Diagnosis: s/p sleeve gastrectomy and paraesophageal hernia repair Referrals: Marleen Shipman KNOTTER [facility] [Primary Care Provider] - 1 Week Discharge Medications: Continued acetaminophen 325 mg Capsule 650 mg PO Q6H PRN (Reason: Pain) Zyrtec 10 mg capsule 10 mg PO DAILY PRN (Reason: Pain) pantoprazole 40 mg tablet,delayed release (DR/EC) 40 mg PO DAILY Qty: 30 2RF sucralfate 100 mg/mL suspension 10 ml PO BID Qty: 400 2RF ondansetron HCl 4 mg tablet 4 mg PO Q12H Qty: 20 0RF Rx Instructions: take one every 12 hours as needed if you have nausea Held levothyroxine 150 mcg tablet 150 mcg PO DAILY Hold Instructions: Discuss dosage with Dr Cuevas Discontinued cholecalciferol (vitamin D3) 125 mcg (5,000 unit) capsule 125 mcg PO DAILY Qty: 30 2RF mecobalamin (vitamin B12) 1,000 mcg tablet,disintegrating 1,000 mcg sublingual DAILY Qty: 30 2RF Rx Instructions: place tablet under tongue and allow to dissolve for at least30 secs before swallowing thiamine HCl (vitamin B1) 100 mg tablet 100 mg PO DAILY Qty: 30 2RF naproxen sodium [Aleve] 220 mg capsule 220 mg PO BID PRN polyethylene glycol 3350 [Miralax] 17 gram powder in packet 17 g PO DAILY Qty: 14 0RF Rx Instructions: Mix each packet with 8oz of water and do 7 packets on 09/15/22 and another 7 packets on 09/16/2022 Discharge Orders: Discharge Order (Routine); Ordered 09/18/22 Ordered By: Tino Cuevas Activity on Discharge: No heavy lifting Stand Alone Forms: Patient Portal Discharge page Care Plan Goals: weight loss Health Concerns: obesity Plan of Treatment: No tub baths, sex or returning to work until discussed at first post op appointment. No exercise, alcohol, tobacco or illegal drug use. Continue to use incentive spirometer hourly while awake. Walk in home for 5- 10 minutes every 2 hours during the first week. Continue phase 1 diet today and start phase 2 diet tomorrow morning. Follow all instructions in the bariatric handbook and call with any questions. 1. Please call your doctor or come back to the emergency room should any new symptoms arise. 2. You will receive a courtesy call from [facility] 24-48 hours after discharge. 3. Activity: abstain from alcohol, practice limited stair climbing, no bending, no driving, no exercise, no illicit substances, no lifting, no sex, no tub bath, no work. 4. Diet: continue as discussed with bariatric team.. 5. Dressing Change/Wound Care: Do not change or remove surgical dressings unless they are wet or soiled. 6. Call your doctor if: - Your temperature exceeds 101.5 F - You experience excessive pain or swelling - You have an unexpected reaction to medication - You have excessive bleeding - You experience continued vomiting/nausea - Your incision begins to separate - Your incision shows signs of infection such as increased redness, swelling, excessive pain, heat, or drainage (light blood or clear fluid is normal) 7. General instructions: No lifting greater than 5 lbs for the next 4 weeks[address] driving within 24 hours of taking narcotic pain medications. If you do not move your bowels in the next 2 days, please take milk of magnesia over the counter. Please follow the post op diet and do not advance your diet until you are seen in the office in about 2 weeks. Please walk around your home every hour or two to prevent blood clots from forming in your legs. You do not need to wake from sleeping to walk. Please sleep in a bed or couch to prevent kinking at the hips and knees. Please take your incentive spirometer (your lung kids activities coach) home with you and use it for the next few days to prevent pneumonias. You may shower, no hot tubs, baths or swimming pools. Please call the office with any questions or concerns such as increasing abdominal pain, fever, chills, shortness of breath, chest pain, leg pain or swelling, or redness or drainage from your incisions. Do not hesitate to contact the office with any questions at . The patient's medical history has been reviewed and they are considered low risk for post op DVT and therefore DVT prophylaxis is not considered necessary. Travel after surgery was reviewed. The patient has not disclosed any travel plans during the first 30 days after surgery and they have been advised that within the first 30 days after surgery any bus, plane, train or car travel over 2 hours in duration is contraindicated due to the possibility of developing blood clots from immobility. Any travel, needs to include periods of ambulation of 10 minutes in duration every 2 hours. The patient was instructed to discuss any plans for travel during this period with their bariatric surgeon. Assessment: stble post op sleeve gastrectomy Discharge Date/Time: 09/18/22 09:53
[2022-09-17] MEDS: Famotidine/PF 20 MG/2 ML VIAL IVPUSH ×2 (14:39→20:02)
[2022-09-17 14:58] LABS: Hematocrit 43.4 % (37.0-47.0); Hemoglobin 14.6 g/dl (12.0-16.0)
--- NOTE | 2022-09-17 15:19 | PHA.MEDREC ---
Pharmacy Consult ? Medication Reconciliation Pharmacy has reviewed the medication reconciliation completed by nursing. Jazmyn Maddox, EbonyD
[2022-09-17 15:24] LABS: Anion Gap 13 (12-20); Blood Urea Nitrogen 15 mg/dL (9-16); Calcium 9.5 mg/dL (8.4-10.2); Carbon Dioxide 21 mmol/L (22-29); Chloride 107 mmol/L (96-108); Creatinine Clr Calc Pharmacy 72.9; Estimated Glomerular Filt Rate 59; Glucose Random 143 mg/dL (60-115); Potassium 4.3 mmol/L (3.3-5.1); Sodium 137 mmol/L (135-145)
[2022-09-17] MEDS: ceFAZolin Sodium/Dextrose,Iso 2 GM/50 ML PIGGYBACK IV (17:13)
[2022-09-17 17:52] LABS: Thyroid Stimulating Hormone 0.32 uIU/mL (0.32-4.0)
[2022-09-17] MEDS: Acetaminophen 1,000 MG/100 ML PIGGYBACK 16.7 MG IV ×2 (17:55→23:05)
[2022-09-17] MEDS: 0.9 % Sodium Chloride Flush 3 ML SYRINGE IVFLUSH (20:02)
[2022-09-17] MEDS: ondansetron HCL 4 MG/2 ML VIAL IVPUSH (23:05)
[2022-09-18 03:26] VITALS: BP 132/59; PULSE 78; RESP 18; TEMP 36.4; O2SAT 95
[2022-09-18] MEDS: Acetaminophen 1,000 MG/100 ML PIGGYBACK 16.7 MG IV (05:03)
[2022-09-18 06:12] LABS: MANUAL DIFF FLAG NO
[2022-09-18 06:18] LABS: Basophils Percent Auto 0.1 % (0-2); Eosinophils Percent Auto 0.1 % (0-4); Hematocrit 42.4 % (37.0-47.0); Hemoglobin 13.9 g/dl (12.0-16.0); Imm Gran Abs Auto 0.06 X10*3/uL (0.00-0.03); Imm Gran Pct Auto 0.4 % (0.0-0.4); Lymphocytes Absolute Auto 2.3 X10*3/uL (1.2-4.9); Lymphocytes Percent Auto 15.5 % (20-40); Mean Corpuscular HGB Conc 32.8 g/dl (31.0-35.0); Mean Corpuscular Volume 94.4 fL (80.0-98.0); Mean Platelet Volume 10.6 fL (9.4-12.3); Monocytes Absolute Auto 0.5 X10*3/uL (0.1-1.2); Monocytes Percent Auto 3.3 % (2-11); Neutrophils Percent Auto 80.6 % (45-73); Platelet Count 242 X10*3/uL (160-400); Red Blood Count 4.49 X10*6/uL (4.20-5.50); Red Cell Distribution Width 12.8 % (11.0-16.0); White Blood Count 14.9 X10*3/uL (4.8-10.8)
[2022-09-18 06:50] LABS: Anion Gap 14 (12-20); Blood Urea Nitrogen 13 mg/dL (9-16); Calcium 9.1 mg/dL (8.4-10.2); Carbon Dioxide 20 mmol/L (22-29); Chloride 107 mmol/L (96-108); Estimated Glomerular Filt Rate > 60; Glucose Random 111 mg/dL (60-115); Potassium 4.4 mmol/L (3.3-5.1); Sodium 137 mmol/L (135-145)
[2022-09-18] MEDS: ondansetron HCL 4 MG/2 ML VIAL IVPUSH (07:09)
[2022-09-18] MEDS: Famotidine/PF 20 MG/2 ML VIAL IVPUSH (07:09)
[2022-09-18 08:00] VITALS: BP 124/69; PULSE 60; RESP 20; TEMP 36.4; O2SAT 95
--- NOTE | 2022-09-18 15:02 | HO.POSTANES ---
Post Anesthesia Evaluation Post Anesthesia Evaluation Vital Signs: Vital Signs Temp Pulse Resp BP Pulse Ox O2 Del Method 09/18/22 08:00 97.5 F 60 20 124/69 95 Room Air 09/18/22 03:26 97.6 F 78 18 132/59 L 95 Room Air Anesthesia: General Endotracheal-GETA Mental Status: Awake Pain Control: Satisfactory Nausea/Vomiting: None Hydration: Adequate Anesthesia-Related Issues: No Anes. Related Issues
== END 2022-09-18 09:53 | disposition home or self-care (01) | DRG 620 ==
LOC: HO.SSSA 08:22 → HO.S3 13:21
PROVIDERS: Physician Assistant; Physician Assistant Surgical; Admitting Provider Surgery; PCP Nurse Practitioner Family; Visit Provider Surgery
PROC: 0DB64Z3 Excision of Stomach, Percutaneous Endoscopic Approach, Vertical (ICD-10-PCS; CPT 43845; principal; 2022-09-17 10:10)
DX: E66.01 Morbid (severe) obesity due to excess calories (principal); K44.0 Diaphragmatic hernia with obstruction, without gangrene; M19.90 Unspecified osteoarthritis, unspecified site; E03.9 Hypothyroidism, unspecified; G47.33 Obstructive sleep apnea (adult) (pediatric); K76.0 Fatty (change of) liver, not elsewhere classified; K66.0 Peritoneal adhesions (postprocedural) (postinfection); K74.00 Hepatic fibrosis, unspecified; Z20.822 Contact with and (suspected) exposure to COVID-19; Z68.38 Body mass index [BMI] 38.0-38.9, adult; Z87.891 Personal history of nicotine dependence; Z79.890 Hormone replacement therapy; Z79.899 Other long term (current) drug therapy
CPT/HCPCS: 36415; 80048; 80053; 80061; 83036; 83525; 84439; 84443; 85014; 85018; 85025; 85610; 85730; 86140; 86850; 86900; 86901; 87635; 88304; 88307; 88342; A4649; C9088; J0131; J0690; J1100; J1170; J2250; J2370; J2405; J2795; J3010

== ENCOUNTER → 2022-09-24 12:39 | Outpatient (BNVA) | payer OTHER, SELFPAY | PROVIDERS: Visit Provider Physician Assistant Surgical | DX: Z98.84 Bariatric surgery status (principal) ==

== ENCOUNTER → 2022-10-10 10:00 | Outpatient (BNVA) | payer OTHER, SELFPAY | PROVIDERS: Visit Provider Physician Assistant Surgical | DX: Z13.89 Encounter for screening for other disorder (principal) ==

== ENCOUNTER → 2022-10-22 08:59 | Outpatient (BNVA) | payer OTHER, SELFPAY | PROVIDERS: Visit Provider Physician Assistant Surgical | DX: Z13.89 Encounter for screening for other disorder (principal) ==

== ENCOUNTER → 2022-11-25 09:06 | Outpatient (BNVA) | payer OTHER, SELFPAY | PROVIDERS: Visit Provider Physician Assistant Surgical | DX: Z13.89 Encounter for screening for other disorder (principal) ==

== ENCOUNTER → 2022-12-27 15:31 | Outpatient (BNVA) | payer OTHER, SELFPAY | PROVIDERS: PCP Nurse Practitioner Adult Health; Visit Provider Physician Assistant Surgical | DX: Z13.89 Encounter for screening for other disorder (principal) ==

== ENCOUNTER → 2023-02-26 10:05 | Outpatient (BNVA) | payer OTHER, SELFPAY | PROVIDERS: PCP Nurse Practitioner Adult Health; Visit Provider Physician Assistant Surgical ==